=== PATIENT | male | born 1995 | race African-American/Black ===

== ENCOUNTER 2016-11-05 22:21 | Emergency (ER) | payer SELFPAY ==
[~2016-11-05] VITALS: Ht 172.7 cm; Wt 72.6 kg
[2016-11-05 22:28] VITALS: BP 115/78
== END 2016-11-06 05:00 | disposition left against medical advice (07) ==
LOC: ER 22:25
DX: R05 Cough (principal); J11.1 Influenza due to unidentified influenza virus with other respiratory manifestations; Z53.21 Procedure and treatment not carried out due to patient leaving prior to being seen by health care provider

== ENCOUNTER 2025-07-17 00:08 | Emergency (ER) | payer SELFPAY ==
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
== END 2025-07-17 02:13 | disposition left against medical advice (07) ==
LOC: EDUNIT# 00:08 → EDBD 00:08 → ER 00:08
DX: M20.002 Unspecified deformity of left finger(s) (principal); F10.90 Alcohol use, unspecified, uncomplicated; Y90.9 Presence of alcohol in blood, level not specified